=== PATIENT | female | born 1960 | race Asian ===

== ENCOUNTER 2022-07-26 09:05 | Outpatient (CLI) | payer OTHER, SELFPAY ==
[2022-07-26 16:18] LABS: Albumin* 4.5 g/dL (3.3-5.0); Chloride* 104 mmol/L (96-114); Potassium* 4.1 mmol/L (3.6-5.1); Sodium* 139 mmol/L (135-149)
[2022-07-26 16:20] LABS: Carbon Dioxide* 24 mmol/L (20-32); Cholesterol* 188 mg/dL (90-199); Creatinine* 0.7 mg/dL (0.5-1.5); Estimated Glomerular Filt Rate 98 ml/min
[2022-07-26 16:21] LABS: Alanine Aminotransferase* 17 U/L (4-35); Alkaline Phosphatase* 47 U/L (40-150); Aspartate Amino Transferase* 37 U/L (12-35); Bilirubin Total* 0.5 mg/dL (0.1-1.5); Blood Urea Nitrogen* 24 mg/dL (7-30); Calcium* 9.1 mg/dL (8.4-10.6); Glucose* 114 mg/dL (60-115); HDL Cholesterol* 59 mg/dL (>=50); LDL Cholesterol Calculated 102 mg/dL (<100); Total Protein* 7.7 g/dL (6.0-8.3); Triglycerides* 136 mg/dL (40-149)
== END 2022-07-26 09:06 | disposition home or self-care (01) ==
PROVIDERS: PCP Family Medicine; Visit Provider Family Medicine
DX: I10 Essential (primary) hypertension (principal); Z13.6 Encounter for screening for cardiovascular disorders
CPT/HCPCS: 80053; 80061

== ENCOUNTER 2022-10-04 13:17 | Outpatient (CLI) | payer OTHER, SELFPAY ==
--- NOTE | 2022-10-04 13:40 | CRLHL7_ITS ---
For Patients: As a result of the Century Cures Act, medical imaging exams and procedure reports are released immediately into your electronic medical record. You may view this report before your referring provider. If you have questions, please contact your health care provider. BILATERAL SCREENING MAMMOGRAM WITH COMPUTER-AIDED DETECTION TECHNIQUE: CC and MLO views were obtained. These mammographic images have been obtained using full-field digital technique. These mammographic images were interpreted with the benefit of computer-aided detection. COMPARISON FILM: 01/16/17, 12/08/15, 11/01/12. FINDINGS: The breasts are heterogeneously dense, which may obscure small masses IMPRESSION: There is no radiographic evidence for malignancy. ASSESSMENT: BI-RADS Category 1: Negative RECOMMENDATION: Routine screening mammogram in 1 year. A lay language report of this examination will be provided to the patient. Tom Phan M.D. Diagnostic Radiologist [email or web address] Transcribed: 3:58 pm DW/Dictated by: Tom Phan MD @ 10/05/2022 12:06:00 PM (Electronically Signed)
== END 2022-10-04 13:18 | disposition home or self-care (01) ==
PROVIDERS: PCP Family Medicine; Visit Provider Family Medicine
DX: Z12.31 Encounter for screening mammogram for malignant neoplasm of breast (principal); R92.2 Inconclusive mammogram
CPT/HCPCS: 77067

== ENCOUNTER 2023-11-15 07:33 | Outpatient (CLI) | payer BC, SELFPAY | END 2023-11-15 07:34 | disposition home or self-care (01) | PROVIDERS: PCP Family Medicine; Visit Provider Family Medicine | DX: Z00.00 Encounter for general adult medical examination without abnormal findings (principal); I10 Essential (primary) hypertension; R73.03 Prediabetes; Z13.6 Encounter for screening for cardiovascular disorders | CPT/HCPCS: 80053; 80061 ==

== ENCOUNTER 2024-12-03 16:30 | Outpatient (CLI) | payer MEDICARE, SELFPAY | END 2024-12-03 16:31 | disposition home or self-care (01) | PROVIDERS: PCP Family Medicine; Referring Provider Family Medicine; Visit Provider Family Medicine | DX: E78.5 Hyperlipidemia, unspecified (principal); I10 Essential (primary) hypertension; R73.03 Prediabetes | CPT/HCPCS: 80053; 80061 ==

== ENCOUNTER 2024-12-11 15:05 | Outpatient (CLI) | payer MEDICARE, BC, SELFPAY | END 2024-12-11 15:06 | disposition home or self-care (01) | LOC: NFLDREF 12-16 17:01 | PROVIDERS: PCP Family Medicine; Referring Provider Family Medicine; Visit Provider Family Medicine | DX: Z11.59 Encounter for screening for other viral diseases (principal); Z01.84 Encounter for antibody response examination | CPT/HCPCS: 80053; 80061; 86803; 87340 ==

== ENCOUNTER 2025-01-22 12:27 | Emergency (ER) | payer MEDICARE, BC, SELFPAY ==
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
[2025-01-22 12:46] VITALS: BP 188/106; PULSE 69; RESP 20; TEMP 36.8; O2SAT 99; BMI 22.3
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
--- OUTSIDE RECORDS SUMMARY | 2025-01-22 13:21 | XMS_ITS | Clinical Summary ---
Author Organization [employer] [facility] & [facility] Address [address] [place] [address] Care Team Providers Care Injection Wax Molder Name Role Phone Flor Aldridge MD Primary Care Provider Allergies Active Allergy Reactions Criticality Noted Date Comments Pneumococcal Vaccine Myalgia 10/21/2014 Medications cholecalciferol (VITAMIN D) 1,000 unit capsule Take 1 capsule by mouth once daily. 0 6 Active guaFENesin SR (MUCINEX) 1,200 mg [id number]:C ough,Upper respiratory tract infection, unspecified type Take [...] on file Legal Sex Female 7:16 AM TRAINING AND DEVELOPMENT ASSISTANT Gender Identity Not on file Sexual Orientation Not on file Obstetrics History Last Filed Vital Signs Vital Sign Reading Time Taken Comments Blood Pressure 156/95 10/11/2017 10:13 AM TRAINING AND DEVELOPMENT ASSISTANT Pulse 110 10/11/2017 10:10 AM TRAINING AND DEVELOPMENT ASSISTANT Temperature 37.9 C (100.2 F) 10/11/2017 10:10 AM TRAINING AND DEVELOPMENT ASSISTANT Respiratory Rate 20 10/11/2017 10:10 AM TRAINING AND DEVELOPMENT ASSISTANT Oxygen Saturation 98% 10/11/2017 10:10 AM TRAINING AND DEVELOPMENT ASSISTANT Inhaled Oxygen Concentration - - Weight 49.2 kg (108 lb 8 oz) 10/11/2017 10:10 AM TRAINING AND DEVELOPMENT ASSISTANT Height 155 cm (5' 1.02) 02/13/2017 9:32 [...] cancer ANTI HCV Routine 12/08/2015 10:58 AM TRAINING AND DEVELOPMENT ASSISTANT Need for hepatitis C screening test XR DXA BONE DENSITY 2 SITES AXIAL Routine 12/08/2015 10:48 AM TRAINING AND DEVELOPMENT ASSISTANT Osteoporosis screening from Last 3 Months or Most Recently Relevant to Health Maintenance Results * LIPID PANEL W REFLEX MEASURED LDL (02/13/2017 10:14 AM CDT) CHOLESTEROL,TOTAL 167 100 - 199 mg/dL 02/13/2017 5:04 PM CDT [facility] TRIGLYCERIDES 60 <150 mg/dL 02/13/2017 5:04 PM CDT [facility] HDL CHOLESTEROL 51 >40 mg/dL 7 5:04 PM CDT [facility] NON-HDL CHOLESTEROL 116 <145 mg/dl 02/13/2017 5:04 PM CDT [facility] CHOL/HDL RATIO 3.27 <4.50 02/13/2017 5:04 PM CDT [facility] LDL CHOLESTEROL 104 <=130 mg/dL 02/13/2017 5:04 PM CDT [facility] PATIENT STATUS FASTING 02/13/2017 5:04 PM CDT [facility] Blood BLOOD SPECIMEN / Unknown Butterfly / Unknown 02/13/2017 10:14 AM CDT 02/13/2017 10:14 AM CDT us Mariola Christie MD CHEMISTRY Final Result [facility] [address] [place] [address], [facility] [address] [place] [address], * XR MAMMO BILAT SCREENING (01/16/2017 3:34 PM CDT) Anatomical Region Laterality Modality BREASTS, Breast Left, Breast Right Bilateral Mammography Impressions 01/17/2017 12:26 PM CDT There is no radiographic evidence for malignancy. Recommend annual mammograms. A lay language report of this examination will be provided to the patient. MAMMOGRAM ASSESSMENT: ACR 2 Benign Narrative 01/17/2017 12:26 PM CDT XR MAMMO BILAT SCREENING [[id number]] CLINICAL HISTORY: This is an asymptomatic 56 y.o. patient. INDICATION FOR EXAM: Mammogram Screening. TECHNIQUE: CC & MLO views were obtained. This digital study was evaluated with the assistance of Computer-Aided Detection. COMPARISON FILMS: Yes 12/08/15 [facility] 11/01/12 [facility] FINDINGS: Mammographically, the breast tissue is heterogeneously dense, which could obscure detection of small masses. No suspicious masses or microcalcifications. Benign appearing asymmetry within left breast. us Flor Aldridge MD MAMMO Final R esult * OCCULT BLOOD IFOBT STOOL (01/16/2017 2:00 PM CDT) STOOL BLOOD ,IFOBT Negative Negative 01/16/2017 4:09 PM CDT [facility] Stool STOOL SPECIMEN / Unknown Non-Blood / Unknown 01/16/2017 2:00 PM CDT 01/16/2017 3:54 PM CDT us Folr Aldridge MD LABORATORY Final R esult [facility] [address] [place] [address], [place] [phone] * ANTI HCV [36506.2] (12/08/2015 10:58 AM TRAINING AND DEVELOPMENT ASSISTANT) HEPATITIS C ANTIBODY Non-Reacti ve Non-Reacti ve 12/08/2015 5:02 PM TRAINING AND DEVELOPMENT ASSISTANT [facility] Blood specimen (specimen) BLOOD SPECIMEN / Unknown Butterfly / Unknown 12/08/2015 10:58 AM TRAINING AND DEVELOPMENT ASSISTANT 12/08/2015 10:58 AM TRAINING AND DEVELOPMENT ASSISTANT Narrative [facility] - 12/08/2015 5:02 PM TRAINING AND DEVELOPMENT ASSISTANT Antibodies to HCV not detected; does not exclude the possibility of exposure to HCV. us Flor Aldridge MD SEND OUTS Final R esult [facility] [address] [place] [address], [place] * (ABNORMAL) XR DEXA BONE DENSITY 2 SITES (12/08/2015 10:48 AM TRAINING AND DEVELOPMENT ASSISTANT) Anatomical Region Laterality Modality Spine, HIPS, HIPL, HIPR Other Narrative 12/09/2015 9:37 PM TRAINING AND DEVELOPMENT ASSISTANT Please see scanned document for results of this study. Flor Aldridge MD DEXA Final R esult from Last 3 Months or Most Recently Relevant to Health Maintenance [facility] Care Teams Injection Wax Molder Relationship Specialty Start Date End Date Flor Aldridge MD [address] [place] [id number] PCP - General Family Practice 04/02/12
[2025-01-22] MEDS: 0.9 % SODIUM CHLORIDE 1000 ml 1,000 ML IV (13:34)
[2025-01-22] MEDS: KETOROLAC 15 MG/ML inj IVP (13:35)
[2025-01-22] MEDS: ONDANSETRON 2 MG/ML inj 4 MG IVP (13:35)
[2025-01-22 13:45] LABS: Basophils Percent Auto 0.1 % (0.0-3.0); Hematocrit 44.6 % (33.0-51.0); Hemoglobin* 15.1 gm/dL (12.0-16.0); Immature Granulocytes Pct Auto 0.1 %; Lymphocytes Percent Auto 14.9 % (20-44); Mean Corpuscular HGB Conc 34 gm/dL (32-36); Mean Corpuscular Hemoglobin 32 pg (26-34); Mean Corpuscular Volume 94 fL (80-100); Monocytes Percent Auto 2.5 % (0.0-11.0); Neutrophils Percent Auto 82.4 % (42.0-72.0); Platelet Count* 272 K/uL (140-440); RDW Coefficient of Variation % 13.3 % (11.5-15.5); Red Blood Count 4.77 m/uL (4.00-5.20); White Blood Count* 12.54 K/uL (4.50-11.00)
[2025-01-22 13:46] LABS: Slide Review Reflex No
[2025-01-22 14:03] LABS: Chloride* 98 mmol/L (96-114); Sodium* 138 mmol/L (135-149)
[2025-01-22 14:04] LABS: Potassium* 3.8 mmol/L (3.6-5.1)
[2025-01-22 14:06] LABS: Blood Urea Nitrogen* 17 mg/dL (7-30); Creatinine* 0.5 mg/dL (0.5-1.5); Est. Creatinine Clearance* 40.29; Estimated Glomerular Filt Rate 104 ml/min
[2025-01-22 14:07] LABS: Anion Gap 14 mEq/L (7-15); Calcium* 9.5 mg/dL (8.4-10.6); Carbon Dioxide* 26 mmol/L (20-32); Glucose* 173 mg/dL (60-115)
[2025-01-22 14:50] VITALS: BP 169/89; PULSE 79; RESP 17; TEMP 37.7; O2SAT 97
== END 2025-01-22 15:09 | disposition home or self-care (01) ==
PROVIDERS: Emergency Provider Emergency Medicine Emergency Medical Services; PCP Family Medicine
DX: K52.9 Noninfective gastroenteritis and colitis, unspecified (principal)
CPT/HCPCS: 36415; 80048; 85025; 96374; 96375; 99284; J1885; J2405; J7030

== ENCOUNTER 2025-01-24 15:12 | Emergency (ER) | payer MEDICARE, BC, SELFPAY ==
[2025-01-24] VITALS (18 sets, daily range): BP systolic 185–213; BP diastolic 104–134; PULSE 52–81; RESP 7–54; TEMP 36.4; O2SAT 95–98; BMI 22.3
--- OUTSIDE RECORDS SUMMARY | 2025-01-24 15:14 | XMS_ITS | Clinical Summary ---
Author Organization [employer] [facility] & [facility] Address [address] [place] [address] Care Team Providers Care Job Captain Name Role Phone Flor Aldridge MD Primary Care Provider Allergies Active Allergy Reactions Criticality Noted Date Comments Pneumococcal Vaccine Myalgia 10/21/2014 Medications cholecalciferol (VITAMIN D) 1,000 unit capsule Take 1 capsule by mouth once daily. 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 Gender Identity Not on file Sexual Orientation Not on file Obstetrics History Last Filed Vital Signs Vital Sign Reading Time Taken Comments Blood Pressure 156/95 10/11/2017 10:13 AM HOUSEHOLD COOK Pulse 110 10/11/2017 10:10 AM HOUSEHOLD COOK Temperature 37.9 C (100.2 F) 10/11/2017 10:10 AM HOUSEHOLD COOK Respiratory Rate 20 10/11/2017 10:10 AM HOUSEHOLD COOK Oxygen Saturation 98% 10/11/2017 10:10 AM HOUSEHOLD COOK Inhaled Oxygen Concentration - - Weight 49.2 kg (108 lb 8 oz) 10/11/2017 10:10 AM HOUSEHOLD COOK Height 155 cm (5' 1.02) 02/13/2017 9:32 [...] vaccine series ( - 2023- season) 2024 Tetanus booster 10/21/2024 10/21/2014, 07/23 (Completed [facility]) DEXA/DXA scan for age 65+ 2024 12/08/2015 Influenza Vaccine (Season Ended) 2025 08/06/20 15, 09/10/2013 RSV vaccine for adults or (1 - [...] cancer ANTI HCV Routine 12/08/2015 10:58 AM HOUSEHOLD COOK Need for hepatitis C screening test XR DXA BONE DENSITY 2 SITES AXIAL Routine 12/08/2015 10:48 AM HOUSEHOLD COOK Osteoporosis screening from Last 3 Months or Most Recently Relevant to Health Maintenance Results * LIPID PANEL W REFLEX MEASURED LDL (02/13/2017 10:14 AM CDT) CHOLESTEROL,TOTAL 167 100 - 199 mg/dL 02/13/2017 5:04 PM CDT [facility] TRIGLYCERIDES 60 <150 mg/dL 02/13/2017 5:04 PM CDT [facility] HDL CHOLESTEROL 51 >40 mg/dL 7 5:04 PM CDT [facility] NON-HDL CHOLESTEROL 116 <145 mg/dl 02/13/2017 5:04 PM CDT [facility] CHOL/HDL RATIO 3.27 <4.50 02/13/2017 5:04 PM CDT [facility] LDL CHOLESTEROL 104 <=130 mg/dL 02/13/2017 5:04 PM CDT [facility] PATIENT STATUS FASTING 02/13/2017 5:04 PM CDT [facility] Blood BLOOD SPECIMEN / Unknown Butterfly / Unknown 02/13/2017 10:14 AM CDT 02/13/2017 10:14 AM CDT Mariola Christie MD CHEMISTRY Final Result [facility] [address] [place] [address], [facility] [address] [place] [address], * XR MAMMO BILAT SCREENING (01/16/2017 3:34 PM CDT) Anatomical Region Laterality Modality BREASTS, Breast Left, Breast Right Bilateral Mammography Impressions 01/17/2017 12:26 PM CDT There is no radiographic evidence for malignancy. Recommend annual mammograms. A lay language report of this examination will be provided to the patient. MAMMOGRAM ASSESSMENT: ACR 2 Benign Narrative 01/17/2017 12:26 PM CDT XR MAMMO BILAT SCREENING [[id number]] CLINICAL HISTORY: This is an asymptomatic 56 y.o. patient. INDICATION FOR EXAM: Mammogram Screening. TECHNIQUE: CC & MLO views were obtained. This digital study was evaluated with the assistance of Computer-Aided Detection. COMPARISON FILMS: Yes 12/08/15 [facility] 11/01/12 [facility] FINDINGS: Mammographically, the breast tissue is heterogeneously dense, which could obscure detection of small masses. No suspicious masses or microcalcifications. Benign appearing asymmetry within left breast. us Flor Aldridge MD MAMMO Final R esult * OCCULT BLOOD IFOBT STOOL (01/16/2017 2:00 PM CDT) STOOL BLOOD ,IFOBT Negative Negative 01/16/2017 4:09 PM CDT [facility] Stool STOOL SPECIMEN / Unknown Non-Blood / Unknown 01/16/2017 2:00 PM CDT 01/16/2017 3:54 PM CDT us Flor Aldridge MD LABORATORY Final R esult [facility] [address] [place] [address], [place] [phone] * ANTI HCV [[id number]] (12/08/2015 10:58 AM HOUSEHOLD COOK) HEPATITIS C ANTIBODY Non-Reacti ve Non-Reacti ve 12/08/2015 5:02 PM HOUSEHOLD COOK [facility] Blood specimen (specimen) BLOOD SPECIMEN / Unknown Butterfly / Unknown 12/08/2015 10:58 AM HOUSEHOLD COOK 12/08/2015 10:58 AM HOUSEHOLD COOK [facility]ative [facility] 12/08/2015 5:02 PM HOUSEHOLD COOK Antibodies to HCV not detected; does not exclude the possibility of exposure to HCV. us Flor Aldridge MD SEND OUTS Final R esult [facility] [address] [place] [address], [place] * (ABNORMAL) XR DEXA BONE DENSITY 2 SITES (12/08/2015 10:48 AM HOUSEHOLD COOK) Anatomical Region Laterality Modality Spine, HIPS, HIPL, HIPR Other Narrative 12/09/2015 9:37 PM HOUSEHOLD COOK Please see scanned document for results of this study. Flor LOUISA Final R esult from Last 3 Months or Most Recently Relevant to Health Maintenance Insurance [employer] Care Teams Job Captain Relationship Specialty Start Date End Date Flor Aldridge MD [address] [place] [phone] PCP - General Family Practice 04/02/12
--- OUTSIDE RECORDS SUMMARY | 2025-01-24 16:28 | XMS_ITS | Clinical Summary ---
Author Organization [employer] [facility] & [facility] Address [address] [place] [address] Care Team Providers Care Anesthesiology Physician Name Role Phone Flor Aldridge MD Primary Care Provider Allergies Active Allergy Reactions Criticality Noted Date Comments Pneumococcal Vaccine Myalgia 10/21/2014 Medications cholecalciferol (VITAMIN D) 1,000 unit capsule Take 1 capsule by mouth once daily. 0 6 Active guaFENesin SR (MUCINEX) 1,200 mg [id number]:C ough,Upper respiratory tract infection, unspecified type Take [...] on file Legal Sex Female 7:16 AM CRM CONSULTANT Gender Identity Not on file Sexual Orientation Not on file Obstetrics History Last Filed Vital Signs Vital Sign Reading Time Taken Comments Blood Pressure 156/95 10/11/2017 10:13 AM CRM CONSULTANT Pulse 110 10/11/2017 10:10 AM CRM CONSULTANT Temperature 37.9 C (100.2 F) 10/11/2017 10:10 AM CRM CONSULTANT Respiratory Rate 20 10/11/2017 10:10 AM CRM CONSULTANT Oxygen Saturation 98% 10/11/2017 10:10 AM CRM CONSULTANT Inhaled Oxygen Concentration - - Weight 49.2 kg (108 lb 8 oz) 10/11/2017 10:10 AM CRM CONSULTANT Height 155 cm (5' 1.02) 02/13/2017 9:32 [...] booster 10/21/2024 10/21/2014, 07/23 ([facility]) DEXA/DXA scan for age 65+ 2024 [...] cancer ANTI HCV Routine 12/08/2015 10:58 AM CRM CONSULTANT Need for hepatitis C screening test XR DXA BONE DENSITY 2 SITES AXIAL Routine 12/08/2015 10:48 AM CRM CONSULTANT Osteoporosis screening from Last 3 Months or Most Recently Relevant to Health Maintenance Results * LIPID PANEL W REFLEX MEASURED LDL (02/13/2017 10:14 AM CDT) CHOLESTEROL,TOTAL 167 100 - 199 mg/dL 02/13/2017 5:04 PM CDT [facility] TRIGLYCERIDES 60 <150 mg/dL 02/13/2017 5:04 PM CDT [facility] HDL CHOLESTEROL 51 >40 mg/dL 7 5:04 PM CDT [facility] NON-HDL CHOLESTEROL 116 <145 mg/dl 02/13/2017 5:04 PM CDT [facility] CHOL/HDL RATIO 3.27 <4.50 02/13/2017 5:04 PM CDT [facility] LDL CHOLESTEROL 104 <=130 mg/dL 02/13/2017 5:04 PM CDT [facility] PATIENT STATUS FASTING 02/13/2017 5:04 PM CDT [facility] Blood BLOOD SPECIMEN / Unknown Butterfly / Unknown 02/13/2017 10:14 AM CDT 02/13/2017 10:14 AM CDT Mariola Christie MD CHEMISTRY Final Result [facility] [address] [place] [address], [facility] [address] [place] [address], * XR MAMMO BILAT SCREENING (01/16/2017 3:34 PM CDT) Anatomical Region Laterality Modality BREASTS, Breast Left, Breast Right Bilateral Mammography Impressions 01/17/2017 12:26 PM CDT There is no radiographic evidence for malignancy. Recommend annual mammograms. A lay language report of this examination will be provided to the patient. MAMMOGRAM ASSESSMENT: ACR 2 Benign Narrative 01/17/2017 12:26 PM CDT XR MAMMO BILAT SCREENING [[id number]] CLINICAL HISTORY: This is an asymptomatic 56 y.o. patient. INDICATION FOR EXAM: Mammogram Screening. TECHNIQUE: CC & MLO views were obtained. This digital study was evaluated with the assistance of Computer-Aided Detection. COMPARISON FILMS: Yes 12/08/15 [facility] 11/01/12 [facility] FINDINGS: Mammographically, the breast tissue is heterogeneously dense, which could obscure detection of small masses. No suspicious masses or microcalcifications. Benign appearing asymmetry within left breast. us Flor Aldridge MD MAMMO Final R esult * OCCULT BLOOD IFOBT STOOL (01/16/2017 2:00 PM CDT) STOOL BLOOD ,IFOBT Negative Negative 01/16/2017 4:09 PM CDT [facility] Stool STOOL SPECIMEN / Unknown Non-Blood / Unknown 01/16/2017 2:00 PM CDT 01/16/2017 3:54 PM CDT us Flor Aldridge MD LABORATORY Final R esult [facility] [address] [place] [address], [place] [phone] * ANTI HCV [[id number]] (12/08/2015 10:58 AM CRM CONSULTANT) HEPATITIS C ANTIBODY Non-Reacti ve Non-Reacti ve 12/08/2015 5:02 PM CRM CONSULTANT [facility] Blood specimen (specimen) BLOOD SPECIMEN / Unknown Butterfly / Unknown 12/08/2015 10:58 AM CRM CONSULTANT 12/08/2015 10:58 AM CRM CONSULTANT Narrative [facility] - 12/08/2015 5:02 PM CRM CONSULTANT Antibodies to HCV not detected; does not exclude the possibility of exposure to HCV. us Flor Aldridge MD SEND OUTS Final R esult [facility] [address] [place] [address], [place] * (ABNORMAL) XR DEXA BONE DENSITY 2 SITES (12/08/2015 10:48 AM CRM CONSULTANT) Anatomical Region Laterality Modality Spine, HIPS, HIPL, HIPR Other Narrative 12/09/2015 9:37 PM CRM CONSULTANT Please see scanned document for results of this study. Flor LOUISA Final R esult from Last 3 Months or Most Recently Relevant to Health Maintenance Insurance [employer] Care Teams Anesthesiology Physician Relationship Specialty Start Date End Date Flor Aldridge MD [address] [place] [id number] PCP - General Family Practice 04/02/12
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
[2025-01-24] MEDS: ONDANSETRON 2 MG/ML inj 4 MG IVP (16:34)
[2025-01-24] MEDS: LORazepam 0.5 MG TABLET PO (16:35)
[2025-01-24] MEDS: 0.9 % SODIUM CHLORIDE 1000 ml 1,000 ML IV ×2 (16:36→17:47)
[2025-01-24 16:43] LABS: Troponin, Point-of-Care* 0.01 ng/ml (0.01-0.04)
[2025-01-24 17:10] LABS: Basophils Absolute Auto 0.03 K/uL (0.00-0.30); Basophils Percent Auto 0.3 % (0.0-3.0); Eosinophils Absolute Auto 0.01 K/uL (0.00-0.50); Eosinophils Percent Auto 0.1 % (0.0-7.0); Hematocrit 43.5 % (33.0-51.0); Hemoglobin* 14.5 gm/dL (12.0-16.0); Immature Granulocytes Abs Auto 0.01 K/uL (0.00-0.30); Immature Granulocytes Pct Auto 0.1 %; Lymphocytes Percent Auto 31.8 % (20-44); Mean Corpuscular HGB Conc 33 gm/dL (32-36); Mean Corpuscular Hemoglobin 32 pg (26-34); Mean Corpuscular Volume 94 fL (80-100); Monocytes Percent Auto 6.1 % (0.0-11.0); Neutrophils Absolute Auto 6.01 K/uL (1.7-7.0); Neutrophils Percent Auto 61.6 % (42.0-72.0); Platelet Count* 262 K/uL (140-440); RDW Coefficient of Variation % 12.8 % (11.5-15.5); Red Blood Count 4.61 m/uL (4.00-5.20); White Blood Count* 9.75 K/uL (4.50-11.00)
[2025-01-24 17:18] LABS: Slide Review Reflex No
[2025-01-24 17:23] LABS: Chloride* 99 mmol/L (96-114); Sodium* 137 mmol/L (135-149)
[2025-01-24 17:24] LABS: Potassium* 3.7 mmol/L (3.6-5.1)
[2025-01-24 17:26] LABS: Blood Urea Nitrogen* 13 mg/dL (7-30); Creatinine* 0.4 mg/dL (0.5-1.5); Est. Creatinine Clearance* 40.29; Estimated Glomerular Filt Rate 110 ml/min
[2025-01-24 17:27] LABS: Anion Gap 12 mEq/L (7-15); Carbon Dioxide* 26 mmol/L (20-32); Glucose* 102 mg/dL (60-115)
[2025-01-24] MEDS: cloNIDine HCL 0.1 MG TABLET PO (17:36)
== END 2025-01-24 19:05 | disposition home or self-care (01) ==
PROVIDERS: Emergency Provider Family Medicine; PCP Family Medicine
DX: R42 Dizziness and giddiness (principal); I10 Essential (primary) hypertension
CPT/HCPCS: 36415; 80048; 84484; 85025; 93005; 96374; 99284; A9270; J2405; J7030

== ENCOUNTER 2025-02-26 14:48 | Outpatient (CLI) | payer MEDICARE, BC, SELFPAY ==
--- NOTE | 2025-02-26 15:00 | CRLHL7_ITS ---
For Patients: As a result of the Century Cures Act, medical imaging exams and procedure reports are released immediately into your electronic medical record. You may view this report before your referring provider. If you have questions, please contact your health care provider. INDICATION: BILATERAL SCREENING MAMMOGRAM, ASYMPTOMATIC 64 YEAR OLD FEMALE COMPARISON: 10/04/22, 02/02/18, 01/16/18 TECHNIQUE: CC and MLO views were obtained. These mammographic images have been obtained using full-field digital technique. These mammographic images were interpreted with the benefit of computer aided detection and tomosynthesis. BREAST COMPOSITION: There are scattered areas of fibroglandular density. FINDINGS: No suspicious findings. ASSESSMENT: BI-RADS 1 Negative RECOMMENDATION: Annual screening mammogram. A lay language report of this examination will be provided to the patient. Dictated by: Tom Phan MD @ 02/28/2025 09:15:32 (Electronically Signed)
--- NOTE | 2025-02-26 15:30 | CRLHL7_ITS ---
For Patients: As a result of the Century Cures Act, medical imaging exams and procedure reports are released immediately into your electronic medical record. You may view this report before your referring provider. If you have questions, please contact your health care provider. XR DXA Bone Mineral Density (BMD) Reason for exam: Screening for osteoporosis. Current height (inches): 61.0 Weight (lbs.): 111.0 Menopause age: 47 Ethnicity: White 1. Have you had a previous hip or vertebral fracture? No. 2. Have you had any fractures during your adult life which did not result from significant trauma (e.g., auto accident)? No. 3. Did either of your parents have a hip fracture? No. 4. Do you smoke? No. 5. Have you ever taken Glucocorticoids? No. 6. Do you have rheumatoid arthritis? No. 7. Do you have secondary osteoporosis? No. 8. Do you drink 3 or more alcoholic drinks per day? No. 9. Are you being treated for osteoporosis? No. 10. Have you ever taken any of the following medications: Actonel, Evista, Fosamax, Miacalcin, Reclast, Boniva, Forteo, HRT (i.e., estrogen/hormone therapy), Protelos, Prolia, Vitamin D, Calcium, other ??? please specify. ANSWER: Yes; vitamin D. 11. Do you have any of the following medical conditions: Anorexia or bulimia, asthma or emphysema, end stage renal disease, hyperparathyroidism, any seizure disorders, cancer, inflammatory bowel diseases, hysterectomy, other ??? please specify. ANSWER: No. 12. What was your maximum height (inches)? 61. 13. Do you perform weightbearing exercise regularly? Yes. 14. Do you regularly consume dairy products? Yes. 15. Do you drink caffeinated beverages? Yes. 16. At what age did your period start? 12. 17. Are you premenopausal? No. 18. How many full-term pregnancies have you had? 0. 19. Have you ever missed your period for more than 6 months in a row (not including or menopause)? No. TECHNIQUE: Bone mineral density study was performed using the [employer]. FINDINGS: The results of the study expressed as bone mineral density (BMD) are as follows: Lumbar Spine L1 to L4: BMD: 0.689 g/cm2. T-score: -3.3. Z-score: -1.5. Neck Left: BMD: 0.513 g/cm2. T-score: -3.0. Z-score: -1.5. Right: BMD: 0.514 g/cm2. T-score: -3.0. Z-score: -1.5. Total Left: BMD: 0.706 g/cm2. T-score: -1.9. Z-score: -0.7. Right: BMD: 0.666 g/cm2. T-score: -2.3. Z-score: -1.0. IMPRESSION: Osteoporosis. WILNER PENG M.D. Diagnostic/Nuclear Medicine Radiologist [email or web address] Transcribed: 4:[address]/Dictated by: Wilner Peng MD @ 02/27/2025 1:31:00 PM (Electronically Signed)
== END 2025-02-26 14:49 | disposition home or self-care (01) ==
LOC: MAMMO 14:49
PROVIDERS: PCP Family Medicine; Visit Provider Family Medicine
DX: Z12.31 Encounter for screening mammogram for malignant neoplasm of breast (principal); Z13.820 Encounter for screening for osteoporosis; M81.0 Age-related osteoporosis without current pathological fracture; Z78.0 Asymptomatic menopausal state
CPT/HCPCS: 77063; 77067; 77080

== ENCOUNTER 2025-05-02 15:20 | Outpatient (CLI) | payer MEDICARE, SELFPAY | END 2025-05-02 15:21 | disposition home or self-care (01) | LOC: NFLDREF 15:20 | PROVIDERS: PCP Family Medicine; Visit Provider Family Medicine | DX: I10 Essential (primary) hypertension (principal); M81.0 Age-related osteoporosis without current pathological fracture | CPT/HCPCS: 80048; 82306 ==